=== PATIENT | male | born 1950 | race African-American/Black ===

== ENCOUNTER 2017-05-25 08:52 | Inpatient (IN) ==
[2017-05-25 12:16] LABS: Basophils % 0.3 % (0.0-0.8); Eosinophils # 0.1 10*3/uL (0.0-0.87); Eosinophils % 1.8 % (0.00-10.9); Immature Granulocytes Absolute 0.06 #; Lymphocytes # 2.1 10*3/uL (1.4-4.0); Lymphocytes % 33.9 % (21.2-54.2); Mean Corpuscular HGB Conc 25.5 GM/DL (32-36); Mean Corpuscular Hemoglobin 15 PG (27-34); Mean Corpuscular Volume 60.4 FL (87-102); Monocytes # 0.9 10*3/uL (0.11-0.8); Monocytes % 13.8 % (1.7-12.7); Neutrophils % 49.2 % (38.7-73.9); Red Blood Count 2.73 MC/CUMM (3.8-5.5); Red Cell Distribution Width 23.3 % (9.3-17.3); White Blood Count 6.2 T/CUMM (4-12)
[2017-05-25 12:20] LABS: PT Patient Result 10.8 SECS; Partial Thromboplastin Time 26.9 SECS (0-40)
[2017-05-25 12:27] LABS: Hematocrit 16.5 VOL% (42.0-52.0); Hemoglobin 4.2 GM/DL (14.0-18.0)
[2017-05-25 12:28] LABS: Platelet Count 81 T/CUMM (130-400)
[2017-05-25 12:42] LABS: Microcytosis 2+
[2017-05-25 12:43] LABS: Hypochromasia 3+; Target Cells Slight
[2017-05-25 12:44] LABS: Platelet Estimate Decreased; Schistocytes Slight
[2017-05-25 12:45] LABS: Acanthocytes Few
[2017-05-25 12:52] LABS: Alanine Aminotransferase 14 U/L (16-61); Albumin 3.8 G/DL (3.4-5.0); Alkaline Phosphatase 65 U/L (45-117); Aspartate Amino Transferase 24 U/L (0-37); Bilirubin,Total < 0.39 MG/DL (0.2-1.0); Blood Urea Nitrogen 9 MG/DL (7-18); Calcium 8.4 MG/DL (8.5-10.1); Glucose 83 MG/DL (74-106); Osmolality,Calculated 274.5 MOS/KG (273-304); Potassium 3.9 MMOL/L (3.5-5.1); Sodium 139 MMOL/L (136-145); Total Protein 7.6 G/DL (6.4-8.3)
[2017-05-25 13:06] LABS: Apearance,Urine CLEAR (Clear); Bilirubin,Urine Negative (Negative); Blood, Urine Negative (Negative); Glucose,Urine (UA) Negative (Negative); Ketones,Urine Negative (Negative); Mucus,Urine Occasional /LPF (Occasional); Nitrite,Urine Negative (Negative); Protein,Urine Negative; Squamous Epithelial Cell,Urine Occasional /HPF (0-10); Urine Color Yellow (Yellow); Urine Specific Gravity 1.016 (1.001-1.035); Urine Urobilinogen < 2.0 EU/DL (0.2-1.0); WBC,Urine <1 /HPF (0-6)
[2017-05-25] MEDS ORDERED: SODIUM CHLORIDE 0.9% 1,000 ML IV PRN ×3 (13:25→20:55)
[2017-05-25] MEDS ORDERED: ONDANSETRON 4 MG/2 ML VIAL IV PRN (16:52)
[2017-05-25] MEDS ORDERED: ACETAMINOPHEN 325 MG TABLET PO PRN (16:52)
[2017-05-25 19:06] LABS: % Iron Saturation 3.8 % (18-50); Ferritin 6.2 ng/ml (26-388)
[2017-05-25 19:13] LABS: Folate 14.7 NG/ML (5.4-24.0)
[2017-05-25] MEDS: SODIUM CHLORIDE 0.9% 1,000 ML IV SCH (23:26)
[2017-05-26] MEDS: SODIUM CHLORIDE 0.9% 1,000 ML IV SCH ×2 (04:16→14:43)
[2017-05-26 06:16] LABS: Basophils % 0.5 % (0.0-0.8); Eosinophils # 0.2 10*3/uL (0.0-0.87); Eosinophils % 3.8 % (0.00-10.9); Hematocrit 18.6 VOL% (42.0-52.0); Immature Granulocytes % 0.3 %; Immature Granulocytes Absolute 0.02 #; Lymphocytes # 2.2 10*3/uL (1.4-4.0); Lymphocytes % 35.1 % (21.2-54.2); Mean Corpuscular Hemoglobin 19 PG (27-34); Mean Corpuscular Volume 63.9 FL (87-102); Monocytes % 15.5 % (1.7-12.7); Neutrophils # 2.8 10*3/uL (1.4-7.4); Neutrophils % 44.8 % (38.7-73.9); Platelet Count 40 T/CUMM (130-400); Red Blood Count 2.91 MC/CUMM (3.8-5.5); Red Cell Distribution Width 28.1 % (9.3-17.3); White Blood Count 6.3 T/CUMM (4-12)
[2017-05-26 06:27] LABS: Hemoglobin 5.4 GM/DL (14.0-18.0)
[2017-05-26 06:40] LABS: Eosinophils 6 % (0-10); Hypochromasia 2+; Lymphocytes 34 % (20-55); Platelet Estimate Decreased; Segmented Neutrophils 44 % (50-85); Total Cells Counted 100
[2017-05-26 06:41] LABS: Microcytosis Slight; Ovalocytes Slight; Schistocytes Slight
[2017-05-26] MEDS ORDERED: SODIUM CHLORIDE 0.9% 1,000 ML IV PRN (06:43)
[2017-05-26 06:46] LABS: Calcium 8.3 MG/DL (8.5-10.1); Osmolality,Calculated 275.4 MOS/KG (273-304); Potassium 3.6 MMOL/L (3.5-5.1)
[2017-05-26] MEDS ORDERED: ONDANSETRON 4 MG/2 ML VIAL ONE (12:18)
[2017-05-26] MEDS ORDERED: METOCLOPRAMIDE 10 MG/2 ML VIAL IV ONE (12:46)
[2017-05-26 13:25] LABS: HIV Antigen/Antibody Result Nonreactive (Nonreactive)
[2017-05-26] MEDS: PANTOPRAZOLE 40 MG TABLET PO SCH (14:50)
[2017-05-27 01:20] LABS: Basophils # 0.1 10*3/uL (0.0-0.2); Basophils % 1.3 % (0.0-0.8); Eosinophils # 0.2 10*3/uL (0.0-0.87); Hematocrit 23.5 VOL% (42.0-52.0); Hemoglobin 6.9 GM/DL (14.0-18.0); Immature Granulocytes % 0.5 %; Immature Granulocytes Absolute 0.04 #; Lymphocytes # 2.3 10*3/uL (1.4-4.0); Lymphocytes % 27.5 % (21.2-54.2); Mean Corpuscular HGB Conc 29.4 GM/DL (32-36); Mean Corpuscular Hemoglobin 20 PG (27-34); Mean Corpuscular Volume 69.3 FL (87-102); Monocytes # 1.3 10*3/uL (0.11-0.8); Monocytes % 15.2 % (1.7-12.7); NRBC # 0.03 10*3/uL; Neutrophils # 4.5 10*3/uL (1.4-7.4); Neutrophils % 53.5 % (38.7-73.9); Red Blood Count 3.39 MC/CUMM (3.8-5.5); Red Cell Distribution Width 28.9 % (9.3-17.3); White Blood Count 8.3 T/CUMM (4-12)
[2017-05-27 01:26] LABS: Platelet Count 38 T/CUMM (130-400)
[2017-05-27] MEDS ORDERED: SODIUM CHLORIDE 0.9% 1,000 ML IV PRN ×2 (01:44→16:13)
[2017-05-27 01:55] LABS: Albumin 3.1 G/DL (3.4-5.0); Bilirubin,Total 0.9 MG/DL (0.2-1.0); Calcium 7.7 MG/DL (8.5-10.1); Magnesium 1.9 MG/DL (1.8-2.4); Osmolality,Calculated 277.4 MOS/KG (273-304); Potassium 3.4 MMOL/L (3.5-5.1); Total Protein 6.3 G/DL (6.4-8.3)
[2017-05-27 03:50] LABS: Hypochromasia 2+; Schistocytes 1+; Target Cells Few
[2017-05-27 03:51] LABS: Acanthocytes Few; Microcytosis 1+; Platelet Estimate Decreased; Poikilocytosis 1+
[2017-05-27 03:52] LABS: Anisocytosis 1+
[2017-05-27 03:55] LABS: Ovalocytes Few
[2017-05-27] MEDS: ATORVASTATIN 40 MG TABLET PO SCH (08:49)
[2017-05-27] MEDS: ISOSORBIDE MONONITRATE 30 MG TABLET PO SCH (08:50)
[2017-05-27] MEDS: BISACODYL 5 MG TABLET PO SCH ×2 (08:50→16:56)
[2017-05-27] MEDS: PANTOPRAZOLE 40 MG TABLET PO SCH (08:50)
[2017-05-27] MEDS ORDERED: POLYETHYLENE GLYCOL POWDER 255 GM BOTTLE PO ONE (18:00)
[2017-05-27] MEDS: SODIUM CHLORIDE 0.9% 1,000 ML IV SCH (18:40)
[2017-05-27] MEDS ORDERED: MAGNESIUM CITRATE 300 ML BOTTLE PO ONE (21:00)
[2017-05-28] MEDS: BISACODYL 5 MG TABLET PO SCH (01:42)
[2017-05-28 07:01] LABS: Basophils # 0.2 10*3/uL (0.0-0.2); Eosinophils # 0.4 10*3/uL (0.0-0.87); Eosinophils % 3.6 % (0.00-10.9); Hematocrit 28.3 VOL% (42.0-52.0); Immature Granulocytes % 0.3 %; Immature Granulocytes Absolute 0.03 #; Lymphocytes # 2.4 10*3/uL (1.4-4.0); Lymphocytes % 24.1 % (21.2-54.2); Mean Corpuscular HGB Conc 29.7 GM/DL (32-36); Mean Corpuscular Hemoglobin 21 PG (27-34); Mean Corpuscular Volume 70.9 FL (87-102); Monocytes # 1.4 10*3/uL (0.11-0.8); Monocytes % 13.6 % (1.7-12.7); NRBC # 0.02 10*3/uL; Neutrophils # 5.6 10*3/uL (1.4-7.4); Neutrophils % 56.4 % (38.7-73.9); Red Blood Count 3.99 MC/CUMM (3.8-5.5); Red Cell Distribution Width 29.5 % (9.3-17.3)
[2017-05-28 07:03] LABS: Hemoglobin 8.4 GM/DL (14.0-18.0); Platelet Count 117 T/CUMM (130-400)
[2017-05-28] MEDS ORDERED: ONDANSETRON 4 MG/2 ML VIAL ONE (10:57)
[2017-05-28] MEDS ORDERED: PROPOFOL 200 MG/20 ML VIAL IV ONE (10:57)
[2017-05-28] MEDS ORDERED: IRON DEXTRAN 25 MG in SYRINGE 1 EACH IV ONE (11:00)
[2017-05-28] MEDS: ISOSORBIDE MONONITRATE 30 MG TABLET PO SCH (12:02)
[2017-05-28] MEDS: ATORVASTATIN 40 MG TABLET PO SCH (12:02)
[2017-05-28] MEDS: PANTOPRAZOLE 40 MG TABLET PO SCH (12:03)
[2017-05-28] MEDS ORDERED: SODIUM CHLORIDE 0.9% IV ONE (16:00)
[2017-05-28] MEDS ORDERED: IRON DEXTRAN IV ONE (16:00)
[2017-05-29 08:07] LABS: Basophils # 0.2 10*3/uL (0.0-0.2); Basophils % 1.4 % (0.0-0.8); Eosinophils # 0.3 10*3/uL (0.0-0.87); Hematocrit 27.4 VOL% (42.0-52.0); Immature Granulocytes % 0.8 %; Lymphocytes # 2.4 10*3/uL (1.4-4.0); Lymphocytes % 18.8 % (21.2-54.2); Mean Corpuscular HGB Conc 29.2 GM/DL (32-36); Mean Corpuscular Hemoglobin 21 PG (27-34); Mean Corpuscular Volume 72.7 FL (87-102); Monocytes # 1.5 10*3/uL (0.11-0.8); NRBC # 0.03 10*3/uL; Neutrophils # 8.3 10*3/uL (1.4-7.4); Platelet Count 123 T/CUMM (130-400); Red Blood Count 3.77 MC/CUMM (3.8-5.5); Red Cell Distribution Width 30.8 % (9.3-17.3); White Blood Count 12.7 T/CUMM (4-12)
[2017-05-29 08:35] LABS: Hypochromasia 2+
[2017-05-29 08:36] LABS: Acanthocytes Few; Platelet Estimate Adequate; Spherocytes Few; Target Cells Few
[2017-05-29 08:38] LABS: Anisocytosis 1+; Microcytosis 1+
[2017-05-29] MEDS ORDERED: LISINOPRIL/HCTZ 10-12.5 MG TABLET PO SCH (09:00)
[2017-05-29] MEDS: ATORVASTATIN 40 MG TABLET PO SCH (09:22)
[2017-05-29] MEDS: ISOSORBIDE MONONITRATE 30 MG TABLET PO SCH (09:22)
[2017-05-29] MEDS: PANTOPRAZOLE 40 MG TABLET PO SCH (09:22)
[2017-05-29] MEDS: SODIUM CHLORIDE 0.9% 1,000 ML IV SCH (10:45)
[2017-05-29 11:20] VITALS: BP 140/84
[2017-05-29 11:36] LABS: Apearance,Urine CLEAR (Clear); Bilirubin,Urine Negative (Negative); Blood, Urine Negative (Negative); Glucose,Urine (UA) Negative (Negative); Ketones,Urine Negative (Negative); Mucus,Urine Occasional /LPF (Occasional); Nitrite,Urine Negative (Negative); Protein,Urine Negative; RBC,Urine <1 /HPF (0-4); Squamous Epithelial Cell,Urine Occasional /HPF (0-10); Urine Color Yellow (Yellow); Urine Specific Gravity 1.008 (1.001-1.035); Urine Urobilinogen < 2.0 EU/DL (0.2-1.0); WBC,Urine 1 /HPF (0-6)
== END 2017-05-29 15:45 | disposition home or self-care (01) | DRG 379 ==
LOC: N.ED 08:52 → N.EDINP 14:08 → N.3E 17:38
PROVIDERS: ADMIT Internal Medicine; ATTEND Internal Medicine

== ENCOUNTER 2017-06-18 06:09 | Inpatient (IN) ==
[2017-06-18] MEDS ORDERED: NITROGLYCERIN 2% OINT 1 INCH/GM PACK TOP STA (07:02)
[2017-06-18] MEDS ORDERED: ASPIRIN 325 MG TABLET PO STA (07:02)
[2017-06-18] MEDS ORDERED: NITROGLYCERIN 2% OINT 1 INCH/GM PACK TOP ONE (07:08)
[2017-06-18] MEDS ORDERED: ASPIRIN 325 MG TABLET ONE (07:08)
[2017-06-18 07:23] LABS: Basophils # 0.2 10*3/uL (0.0-0.2); Basophils % 0.9 % (0.0-0.8); Eosinophils # 0.2 10*3/uL (0.0-0.87); Eosinophils % 0.9 % (0.00-10.9); Hematocrit 39.4 VOL% (42.0-52.0); Hemoglobin 12.3 GM/DL (14.0-18.0); Immature Granulocytes % 0.5 %; Immature Granulocytes Absolute 0.09 #; Lymphocytes # 1.6 10*3/uL (1.4-4.0); Lymphocytes % 9.5 % (21.2-54.2); Mean Corpuscular HGB Conc 31.2 GM/DL (32-36); Mean Corpuscular Hemoglobin 26 PG (27-34); Mean Corpuscular Volume 81.9 FL (87-102); Mean Platelet Volume 8.8 FL (9.6-12.0); Monocytes # 1.8 10*3/uL (0.11-0.8); Monocytes % 10.3 % (1.7-12.7); Neutrophils # 13.3 10*3/uL (1.4-7.4); Neutrophils % 77.9 % (38.7-73.9); Platelet Count 783 T/CUMM (130-400); Red Blood Count 4.81 MC/CUMM (3.8-5.5)
[2017-06-18 07:48] LABS: PT Patient Result 10.5 SECS
[2017-06-18 07:57] LABS: Albumin 3.7 G/DL (3.4-5.0); Bilirubin,Total 0.9 MG/DL (0.2-1.0); Calcium 9.7 MG/DL (8.5-10.1); Potassium 3.5 MMOL/L (3.5-5.1); Total Protein 7.3 G/DL (6.4-8.3)
[2017-06-18] MEDS ORDERED: ONDANSETRON 4 MG/2 ML VIAL IV PRN (09:50)
[2017-06-18] MEDS ORDERED: MORPHINE 2 MG/1 ML SYRINGE IV PRN (09:50)
[2017-06-18] MEDS ORDERED: MAGNESIUM SULF RIDER 2 GM in PREMIX 1 EACH IV PRN (09:50)
[2017-06-18] MEDS ORDERED: MAGNESIUM SULF RIDER 4 GM in PREMIX 1 EACH IV PRN (09:50)
[2017-06-18] MEDS: NITROGLYCERIN DRIP 50 MG/250 ML BOTTLE IV SCH (10:06)
[2017-06-18] MEDS: DEXTROSE 5% NACL 0.45% 1,000 ML IV SCH ×2 (10:06→18:06)
[2017-06-18] MEDS: ENOXAPARIN 80 MG/0.8 ML SYRINGE SUBCUT SCH ×2 (10:16→22:57)
[2017-06-18 10:48] LABS: Hypochromasia Slight; Polychromasia Slight; Target Cells Slight
[2017-06-18] MEDS ORDERED: TIROFIBAN IV ONE ×2 (10:53→11:30)
[2017-06-18] MEDS: TIROFIBAN 5,000 MCG/100 ML PREMIX IV SCH ×2 (11:41→18:03)
[2017-06-18 18:13] LABS: Basophils # 0.1 10*3/uL (0.0-0.2); Basophils % 0.8 % (0.0-0.8); Eosinophils # 0.1 10*3/uL (0.0-0.87); Eosinophils % 0.6 % (0.00-10.9); Hematocrit 39.8 VOL% (42.0-52.0); Hemoglobin 12.2 GM/DL (14.0-18.0); Immature Granulocytes % 0.5 %; Immature Granulocytes Absolute 0.07 #; Lymphocytes # 1.7 10*3/uL (1.4-4.0); Lymphocytes % 13.1 % (21.2-54.2); Mean Corpuscular HGB Conc 30.7 GM/DL (32-36); Mean Corpuscular Hemoglobin 25 PG (27-34); Mean Corpuscular Volume 81.4 FL (87-102); Mean Platelet Volume 8.9 FL (9.6-12.0); Monocytes # 1.8 10*3/uL (0.11-0.8); Monocytes % 13.6 % (1.7-12.7); Neutrophils # 9.4 10*3/uL (1.4-7.4); Neutrophils % 71.4 % (38.7-73.9); Platelet Count 640 T/CUMM (130-400); Red Blood Count 4.89 MC/CUMM (3.8-5.5); White Blood Count 13.2 T/CUMM (4-12)
[2017-06-18 20:07] LABS: Anisocytosis 3+; Burr Cells Few; Hypochromasia Slight; Ovalocytes Few; Platelet Estimate Increased; Poikilocytosis 2+; Spherocytes Few; Target Cells Few
[2017-06-19] MEDS: TIROFIBAN 5,000 MCG/100 ML PREMIX IV SCH ×4 (01:07→19:47)
[2017-06-19] MEDS: DEXTROSE 5% NACL 0.45% 1,000 ML IV SCH ×4 (02:32→22:31)
[2017-06-19 05:16] LABS: Basophils # 0.1 10*3/uL (0.0-0.2); Basophils % 0.9 % (0.0-0.8); Eosinophils # 0.1 10*3/uL (0.0-0.87); Eosinophils % 0.6 % (0.00-10.9); Hematocrit 37.7 VOL% (42.0-52.0); Hemoglobin 11.7 GM/DL (14.0-18.0); Immature Granulocytes % 0.2 %; Immature Granulocytes Absolute 0.03 #; Lymphocytes # 1.8 10*3/uL (1.4-4.0); Lymphocytes % 13.9 % (21.2-54.2); Mean Corpuscular Hemoglobin 25 PG (27-34); Mean Corpuscular Volume 81.3 FL (87-102); Mean Platelet Volume 8.6 FL (9.6-12.0); Monocytes # 2.1 10*3/uL (0.11-0.8); Monocytes % 15.8 % (1.7-12.7); Neutrophils % 68.6 % (38.7-73.9); Platelet Count 734 T/CUMM (130-400); Red Blood Count 4.64 MC/CUMM (3.8-5.5); White Blood Count 13.1 T/CUMM (4-12)
[2017-06-19 05:24] LABS: PT Patient Result 10.6 SECS
[2017-06-19 05:49] LABS: Calcium 9.3 MG/DL (8.5-10.1); Osmolality,Calculated 273.7 MOS/KG (273-304); Potassium 3.5 MMOL/L (3.5-5.1)
[2017-06-19] MEDS ORDERED: DIAZEPAM 5 MG TABLET PO ONE (06:00)
[2017-06-19] MEDS ORDERED: diphenhydrAMINE CAP 25 MG CAPSULE PO ONE (06:00)
[2017-06-19] MEDS ORDERED: POTASSIUM CHLORIDE RIDER 10 MEQ in PREMIX 1 EACH IV PRN (06:00)
[2017-06-19] MEDS ORDERED: MAGNESIUM SULF RIDER 2 GM in PREMIX 1 EACH IV PRN (06:00)
[2017-06-19 06:04] LABS: Eosinophils 1 % (0-10); Lymphocytes 9 % (20-55); Platelet Estimate Normal; Segmented Neutrophils 79 % (50-85); Total Cells Counted 100
[2017-06-19] MEDS ORDERED: LIDOCAINE 1% 20 ML VIAL ONE (06:50)
[2017-06-19] MEDS ORDERED: HYDROmorphone 2 MG/1 ML VIAL ONE (07:21)
[2017-06-19] MEDS ORDERED: MIDAZOLAM 2 MG/2 ML VIAL ONE (07:21)
[2017-06-19] MEDS ORDERED: ENOXAPARIN 30 MG/0.3 ML SYRINGE ONE (07:53)
[2017-06-19] MEDS ORDERED: ASPIRIN 325 MG TABLET ONE (07:59)
[2017-06-19] MEDS ORDERED: NITROGLYCERIN DRIP 50 MG/250 ML BOTTLE IV ONE (08:24)
[2017-06-19] MEDS ORDERED: TICAGRELOR 90 MG TABLET ONE (08:43)
[2017-06-19] MEDS ORDERED: ASPIRIN EC 81 MG TABLET PO SCH (09:00)
[2017-06-19] MEDS ORDERED: SODIUM CHLORIDE 0.45% 1,000 ML IV SCH (09:00)
[2017-06-19] MEDS ORDERED: TICAGRELOR 90 MG TABLET PO SCH (09:00)
[2017-06-19] MEDS ORDERED: ROSUVASTATIN 20 MG TABLET PO SCH (09:30)
[2017-06-19] MEDS: CARVEDILOL 3.125 MG TABLET PO SCH ×2 (09:58→20:41)
[2017-06-19] MEDS: NITROGLYCERIN DRIP 50 MG/250 ML BOTTLE IV SCH ×2 (10:14→10:57)
[2017-06-19 10:17] LABS: CKMB % 7.7 %
[2017-06-19 10:18] LABS: Troponin I Only 21.3 NG/ML (0.00-0.045)
[2017-06-19] MEDS: LISINOPRIL 5 MG TABLET PO SCH (12:05)
[2017-06-19] MEDS: ROSUVASTATIN 20 MG TABLET PO SCH (20:41)
[2017-06-19] MEDS: TICAGRELOR 90 MG TABLET PO SCH (20:42)
[2017-06-20] MEDS: TIROFIBAN 5,000 MCG/100 ML PREMIX IV SCH (01:29)
[2017-06-20 05:14] LABS: Calcium 8.8 MG/DL (8.5-10.1); Osmolality,Calculated 275.4 MOS/KG (273-304); Potassium 3.3 MMOL/L (3.5-5.1)
[2017-06-20 05:20] LABS: CKMB % 3.7 %; Calcium 9.2 MG/DL (8.5-10.1); Osmolality,Calculated 274.5 MOS/KG (273-304); Potassium 3.4 MMOL/L (3.5-5.1)
[2017-06-20 05:21] LABS: Troponin I Only 10.4 NG/ML (0.00-0.045)
[2017-06-20 05:34] LABS: Basophils # 0.2 10*3/uL (0.0-0.2); Basophils % 1.3 % (0.0-0.8); Eosinophils # 0.2 10*3/uL (0.0-0.87); Eosinophils % 1.7 % (0.00-10.9); Hemoglobin 11.7 GM/DL (14.0-18.0); Immature Granulocytes % 0.5 %; Immature Granulocytes Absolute 0.06 #; Lymphocytes # 1.7 10*3/uL (1.4-4.0); Lymphocytes % 13.4 % (21.2-54.2); Mean Corpuscular HGB Conc 31.6 GM/DL (32-36); Mean Corpuscular Hemoglobin 26 PG (27-34); Mean Platelet Volume 9.1 FL (9.6-12.0); Monocytes # 1.8 10*3/uL (0.11-0.8); Monocytes % 14.1 % (1.7-12.7); Neutrophils # 8.7 10*3/uL (1.4-7.4); Platelet Count 669 T/CUMM (130-400); Red Blood Count 4.51 MC/CUMM (3.8-5.5); White Blood Count 12.6 T/CUMM (4-12)
[2017-06-20] MEDS: DEXTROSE 5% NACL 0.45% 1,000 ML IV SCH ×3 (05:35→21:23)
[2017-06-20 05:43] LABS: Giant Platelets Few; Hypochromasia 1+; Microcytosis Slight; Platelet Estimate Increased
[2017-06-20] MEDS: POTASSIUM CHLORIDE RIDER 10 MEQ in PREMIX 1 EACH IV PRN ×2 (06:15→07:56)
[2017-06-20] MEDS: ASPIRIN EC 81 MG TABLET PO SCH (08:26)
[2017-06-20] MEDS: CARVEDILOL 3.125 MG TABLET PO SCH (08:26)
[2017-06-20] MEDS: LISINOPRIL 5 MG TABLET PO SCH (08:26)
[2017-06-20] MEDS: TICAGRELOR 90 MG TABLET PO SCH ×2 (08:26→21:21)
[2017-06-20] MEDS: LISINOPRIL 20 MG TABLET PO SCH (16:57)
[2017-06-20] MEDS: CARVEDILOL 6.25 MG TABLET PO SCH (21:21)
[2017-06-20] MEDS: ROSUVASTATIN 20 MG TABLET PO SCH (21:21)
[2017-06-20] MEDS: NITROGLYCERIN DRIP 50 MG/250 ML BOTTLE IV SCH (21:22)
[2017-06-21] MEDS: cloNIDine 0.1 MG TABLET PO PRN ×4 (02:05→08:24)
[2017-06-21] MEDS: DEXTROSE 5% NACL 0.45% 1,000 ML IV SCH ×2 (04:00→10:46)
[2017-06-21 05:57] LABS: Risk Ratio 2.38
[2017-06-21 07:30] LABS: Basophils # 0.1 10*3/uL (0.0-0.2); Basophils % 1.3 % (0.0-0.8); Eosinophils # 0.4 10*3/uL (0.0-0.87); Eosinophils % 3.8 % (0.00-10.9); Hematocrit 35.9 VOL% (42.0-52.0); Hemoglobin 11.5 GM/DL (14.0-18.0); Immature Granulocytes % 0.5 %; Immature Granulocytes Absolute 0.05 #; Lymphocytes # 1.8 10*3/uL (1.4-4.0); Lymphocytes % 17.1 % (21.2-54.2); Mean Corpuscular Hemoglobin 26 PG (27-34); Mean Corpuscular Volume 81.6 FL (87-102); Mean Platelet Volume 8.5 FL (9.6-12.0); Monocytes # 1.4 10*3/uL (0.11-0.8); Monocytes % 13.3 % (1.7-12.7); Neutrophils # 6.9 10*3/uL (1.4-7.4); Platelet Count 618 T/CUMM (130-400); White Blood Count 10.8 T/CUMM (4-12)
[2017-06-21 07:44] LABS: Osmolality,Calculated 278.3 MOS/KG (273-304); Potassium 3.9 MMOL/L (3.5-5.1)
[2017-06-21 07:59] LABS: Hypochromasia 1+; Microcytosis 1+; Spherocytes Few; Target Cells Slight
[2017-06-21] MEDS: CARVEDILOL 6.25 MG TABLET PO SCH (08:24)
[2017-06-21] MEDS: LISINOPRIL 20 MG TABLET PO SCH (08:24)
[2017-06-21] MEDS: ASPIRIN EC 81 MG TABLET PO SCH (08:25)
[2017-06-21] MEDS: TICAGRELOR 90 MG TABLET PO SCH (08:25)
[2017-06-21] MEDS: NITROGLYCERIN DRIP 50 MG/250 ML BOTTLE IV SCH (10:46)
[2017-06-21 15:28] VITALS: BP 158/91
== END 2017-06-21 15:32 | disposition home or self-care (01) | DRG 247 ==
LOC: N.ED 06:09 → N.EDINP 08:12 → N.CC 08:53
PROVIDERS: ADMIT Internal Medicine Cardiovascular Disease; ATTEND Internal Medicine Cardiovascular Disease
PROC: CLCCHCL (ICD-10-PCS; 2017-06-19 07:45)

== ENCOUNTER 2018-11-21 17:52 | Observation (INO) ==
[2018-11-21] MEDS ORDERED: HYDROmorphone 2 MG/1 ML VIAL IV STA (19:25)
[2018-11-21] MEDS ORDERED: ORPHENADRINE 60 MG/2 ML VIAL IM STA (20:19)
[2018-11-21] MEDS ORDERED: KETOROLAC 30 MG/1 ML VIAL IM STA (20:20)
[2018-11-21] MEDS ORDERED: PROMETHAZINE 25 MG/1 ML VIAL IM PRN (22:03)
[2018-11-21] MEDS ORDERED: diphenhydrAMINE CAP 25 MG CAPSULE PO PRN (22:03)
[2018-11-21] MEDS ORDERED: ACETAMINOPHEN 325 MG TABLET PO PRN (22:03)
[2018-11-21] MEDS ORDERED: ONDANSETRON 4 MG/2 ML VIAL IV PRN (22:03)
[2018-11-21] MEDS ORDERED: NICOTINE 21 MG/24 HR PATCH TRANSDERM PRN (22:03)
[2018-11-21] MEDS ORDERED: MORPHINE 4 MG/1 ML VIAL IV PRN (22:03)
[2018-11-21 22:18] LABS: Basophils # 0.1 10*3/uL (0.0-0.2); Basophils % 0.8 % (0.0-0.8); Eosinophils # 0.1 10*3/uL (0.0-0.87); Eosinophils % 1.5 % (0.00-10.9); Hemoglobin 8.7 GM/DL (14.0-18.0); Immature Granulocytes % 0.4 %; Immature Granulocytes Absolute 0.03 #; Lymphocytes # 1.8 10*3/uL (1.4-4.0); Mean Corpuscular Volume 74.4 FL (87-102); Mean Platelet Volume 8.5 FL (9.6-12.0); Monocytes % 13.7 % (1.7-12.7); Neutrophils % 61.6 % (38.7-73.9); Platelet Count 359 T/CUMM (130-400); Red Blood Count 4.03 MC/CUMM (3.8-5.5); Red Cell Distribution Width 23.1 % (9.3-17.3); White Blood Count 8.2 T/CUMM (4-12)
[2018-11-21 22:25] LABS: Apearance,Urine CLEAR (Clear); Bilirubin,Urine Negative (Negative); Blood, Urine Negative (Negative); Glucose,Urine (UA) Negative (Negative); Ketones,Urine 5 mg/dL (Negative); Mucus,Urine Occasional /LPF (Occasional); Nitrite,Urine Negative (Negative); Protein,Urine 30 MG/DL; RBC,Urine 2 /HPF (0-4); Squamous Epithelial Cell,Urine Occasional /HPF (0-10); Urine Color Yellow (Yellow); Urine Specific Gravity 1.023 (1.001-1.035); Urine Urobilinogen < 2.0 EU/DL (0.2-1.0); WBC,Urine 5 /HPF (0-6)
[2018-11-21 22:42] LABS: Albumin 3.9 G/DL (3.4-5.0); Bilirubin,Total 0.5 MG/DL (0.2-1.0); Calcium 9.2 MG/DL (8.5-10.1); Osmolality,Calculated 279.3 MOS/KG (273-304); Total Protein 7.5 G/DL (6.4-8.3)
[2018-11-22] MEDS ORDERED: hydrALAZINE 20 MG/1 ML VIAL IV PRN (05:26)
[2018-11-22] MEDS ORDERED: KETOROLAC 30 MG/1 ML VIAL IV SCH (07:30)
[2018-11-22] MEDS: METAXALONE 800 MG TABLET PO SCH ×2 (08:15→10:01)
[2018-11-22] MEDS ORDERED: BICALUTAMIDE 50 MG TABLET PO SCH (09:00)
[2018-11-22] MEDS ORDERED: ISOSORBIDE MONONITRATE 30 MG TABLET PO SCH (09:00)
[2018-11-22] MEDS ORDERED: TICAGRELOR 90 MG TABLET PO SCH (09:00)
[2018-11-22] MEDS ORDERED: CARVEDILOL 6.25 MG TABLET PO SCH (09:00)
[2018-11-22] MEDS ORDERED: GABAPENTIN 100 MG CAPSULE PO SCH (09:20)
[2018-11-22] MEDS ORDERED: DICLOFENAC 1% GEL 100 GM TUBE TOP SCH (09:21)
[2018-11-22] MEDS ORDERED: DEXAMETHASONE 4 MG/1 ML VIAL IM ONE (09:45)
[2018-11-22] MEDS ORDERED: methylPREDNISolone ACETATE 80 MG/1 ML VIAL IM ONE (09:45)
[2018-11-22 11:40] VITALS: BP 141/100
[2018-11-22] MEDS ORDERED: ROSUVASTATIN 20 MG TABLET PO SCH (21:00)
== END 2018-11-22 13:40 | disposition home or self-care (01) ==
LOC: EDUNIT# → N.ED 17:52 → N.3E 19:45 → INTOOBSV 22:02 → N.3E 22:02
PROVIDERS: ADMIT Internal Medicine; ATTEND Internal Medicine

== ENCOUNTER 2018-12-14 18:22 | Inpatient (IN) ==
[2018-12-14 19:20] LABS: Basophils # 0.1 10*3/uL (0.0-0.2); Basophils % 0.9 % (0.0-0.8); Eosinophils # 0.3 10*3/uL (0.0-0.87); Hematocrit 30.1 VOL% (42.0-52.0); Hemoglobin 9.1 GM/DL (14.0-18.0); Immature Granulocytes % 0.4 %; Immature Granulocytes Absolute 0.04 #; Lymphocytes # 2.1 10*3/uL (1.4-4.0); Lymphocytes % 22.1 % (21.2-54.2); Mean Corpuscular HGB Conc 30.2 GM/DL (32-36); Mean Platelet Volume 8.6 FL (9.6-12.0); Monocytes % 11.9 % (1.7-12.7); Neutrophils % 61.7 % (38.7-73.9); Platelet Count 403 T/CUMM (130-400); Red Blood Count 3.96 MC/CUMM (3.8-5.5); Red Cell Distribution Width 23.4 % (9.3-17.3); White Blood Count 9.7 T/CUMM (4-12)
[2018-12-14 19:38] LABS: Albumin 3.6 G/DL (3.4-5.0); Bilirubin,Total 0.4 MG/DL (0.2-1.0); Osmolality,Calculated 287.8 MOS/KG (273-304); Total Protein 7.2 G/DL (6.4-8.3)
[2018-12-14 19:45] LABS: PT Patient Result 10.7 SECS
[2018-12-14] MEDS ORDERED: ONDANSETRON 4 MG/2 ML VIAL IV PRN (21:45)
[2018-12-14] MEDS ORDERED: ACETAMINOPHEN 325 MG TABLET PO PRN (21:45)
[2018-12-14] MEDS ORDERED: DOCUSATE SODIUM 100 MG CAPSULE PO PRN (21:45)
[2018-12-14] MEDS ORDERED: PROMETHAZINE 25 MG TABLET PO PRN (21:45)
[2018-12-15] MEDS: THIAMINE INJ 100 MG, FOLIC ACID INJ 1 MG, MULTIVITAMIN INJ 10 ML in SODIUM CHLORIDE 0.9... IV SCH ×2 (00:36→21:46)
[2018-12-15 06:19] LABS: Basophils # 0.1 10*3/uL (0.0-0.2); Basophils % 0.8 % (0.0-0.8); Eosinophils # 0.3 10*3/uL (0.0-0.87); Eosinophils % 2.8 % (0.00-10.9); Hematocrit 29.1 VOL% (42.0-52.0); Hemoglobin 8.8 GM/DL (14.0-18.0); Immature Granulocytes % 0.4 %; Immature Granulocytes Absolute 0.04 #; Lymphocytes # 2.2 10*3/uL (1.4-4.0); Lymphocytes % 23.5 % (21.2-54.2); Mean Corpuscular HGB Conc 30.2 GM/DL (32-36); Mean Corpuscular Volume 75.2 FL (87-102); Mean Platelet Volume 8.7 FL (9.6-12.0); Monocytes % 11.5 % (1.7-12.7); Platelet Count 379 T/CUMM (130-400); Red Blood Count 3.87 MC/CUMM (3.8-5.5); Red Cell Distribution Width 23.7 % (9.3-17.3); White Blood Count 9.4 T/CUMM (4-12)
[2018-12-15 06:46] LABS: Acanthocytes 1+; Anisocytosis 1+; Hypochromasia 1+; Ovalocytes 1+; Platelet Estimate Adequate; Target Cells 1+
[2018-12-15 06:49] LABS: Albumin 3.4 G/DL (3.4-5.0); Bilirubin,Total 0.4 MG/DL (0.2-1.0); Calcium 9.3 MG/DL (8.5-10.1); Osmolality,Calculated 279.3 MOS/KG (273-304); Total Protein 6.4 G/DL (6.4-8.3)
[2018-12-15 06:52] LABS: Apearance,Urine CLEAR (Clear); Bilirubin,Urine Negative (Negative); Blood, Urine Negative (Negative); Glucose,Urine (UA) Negative (Negative); Ketones,Urine Negative (Negative); Nitrite,Urine Negative (Negative); Protein,Urine Negative; RBC,Urine 2 /HPF (0-4); Squamous Epithelial Cell,Urine Occasional /HPF (0-10); Urine Color Yellow (Yellow); Urine Specific Gravity 1.056 (1.001-1.035); Urine Urobilinogen < 2.0 EU/DL (0.2-1.0); WBC,Urine 11 /HPF (0-6)
[2018-12-15 07:26] LABS: Barbiturates Screen,Urine Negative (Negative); Benzodiazepines Screen,Urine Negative (Negative); Cannabinoid Screen,Urine Positive (Negative); Opiate Screen,Urine Negative (Negative); Phencyclidine Screen,Urine Negative (Negative)
[2018-12-15] MEDS: DICLOFENAC 1% GEL 100 GM TUBE TOP SCH ×3 (08:32→21:22)
[2018-12-15] MEDS: TICAGRELOR 90 MG TABLET PO SCH ×2 (08:32→21:22)
[2018-12-15] MEDS: PANTOPRAZOLE 40 MG TABLET PO SCH (08:33)
[2018-12-15] MEDS: ISOSORBIDE MONONITRATE 30 MG TABLET PO SCH (08:33)
[2018-12-15] MEDS: GABAPENTIN 100 MG CAPSULE PO SCH ×3 (08:33→21:22)
[2018-12-15] MEDS: MULTIVITAMIN (CENTRUM) TABLET PO SCH (08:33)
[2018-12-15] MEDS: CARVEDILOL 12.5 MG TABLET PO SCH ×2 (08:33→21:22)
[2018-12-15] MEDS: ROSUVASTATIN 20 MG TABLET PO SCH (21:21)
[2018-12-16] MEDS: THIAMINE INJ 100 MG, FOLIC ACID INJ 1 MG, MULTIVITAMIN INJ 10 ML in SODIUM CHLORIDE 0.9... IV SCH (00:42)
[2018-12-16] MEDS: PANTOPRAZOLE 40 MG TABLET PO SCH (08:55)
[2018-12-16] MEDS: TICAGRELOR 90 MG TABLET PO SCH ×2 (08:55→21:12)
[2018-12-16] MEDS: MULTIVITAMIN (CENTRUM) TABLET PO SCH (08:55)
[2018-12-16] MEDS: GABAPENTIN 100 MG CAPSULE PO SCH ×3 (08:55→21:11)
[2018-12-16] MEDS: CARVEDILOL 12.5 MG TABLET PO SCH ×2 (08:56→21:11)
[2018-12-16] MEDS: ISOSORBIDE MONONITRATE 30 MG TABLET PO SCH (08:56)
[2018-12-16] MEDS: DICLOFENAC 1% GEL 100 GM TUBE TOP SCH ×3 (08:56→21:12)
[2018-12-16] MEDS: ROSUVASTATIN 20 MG TABLET PO SCH (21:11)
[2018-12-16] MEDS: ZALEPLON 5 MG CAPSULE PO PRN (21:12)
[2018-12-17] MEDS: THIAMINE INJ 100 MG, FOLIC ACID INJ 1 MG, MULTIVITAMIN INJ 10 ML in SODIUM CHLORIDE 0.9... IV SCH (00:09)
[2018-12-17] MEDS: TICAGRELOR 90 MG TABLET PO SCH ×2 (11:14→20:36)
[2018-12-17] MEDS: MULTIVITAMIN (CENTRUM) TABLET PO SCH (11:14)
[2018-12-17] MEDS: CARVEDILOL 12.5 MG TABLET PO SCH ×2 (11:14→20:36)
[2018-12-17] MEDS: PANTOPRAZOLE 40 MG TABLET PO SCH (11:14)
[2018-12-17] MEDS: GABAPENTIN 100 MG CAPSULE PO SCH ×3 (11:14→20:36)
[2018-12-17] MEDS: ISOSORBIDE MONONITRATE 30 MG TABLET PO SCH (11:14)
[2018-12-17] MEDS: DICLOFENAC 1% GEL 100 GM TUBE TOP SCH ×3 (11:15→20:44)
[2018-12-17] MEDS ORDERED: LORazepam 2 MG/1 ML VIAL IV PRN (17:10)
[2018-12-17] MEDS: levETIRAcetam 500 MG TABLET PO SCH (20:36)
[2018-12-17] MEDS: ROSUVASTATIN 20 MG TABLET PO SCH (20:36)
[2018-12-17] MEDS: ZALEPLON 5 MG CAPSULE PO PRN (20:40)
[2018-12-18] MEDS: THIAMINE INJ 100 MG, FOLIC ACID INJ 1 MG, MULTIVITAMIN INJ 10 ML in SODIUM CHLORIDE 0.9... IV SCH (00:37)
[2018-12-18] MEDS ORDERED: hydrALAZINE 20 MG/1 ML VIAL IV ONE (04:07)
[2018-12-18 07:53] VITALS: BP 158/104
[2018-12-18] MEDS: CARVEDILOL 12.5 MG TABLET PO SCH (09:13)
[2018-12-18] MEDS: levETIRAcetam 500 MG TABLET PO SCH (09:13)
[2018-12-18] MEDS: TICAGRELOR 90 MG TABLET PO SCH (09:13)
[2018-12-18] MEDS: ISOSORBIDE MONONITRATE 30 MG TABLET PO SCH (09:14)
[2018-12-18] MEDS: GABAPENTIN 100 MG CAPSULE PO SCH (09:14)
[2018-12-18] MEDS: PANTOPRAZOLE 40 MG TABLET PO SCH (09:14)
[2018-12-18] MEDS: MULTIVITAMIN (CENTRUM) TABLET PO SCH (09:14)
[2018-12-18] MEDS: DICLOFENAC 1% GEL 100 GM TUBE TOP SCH (09:15)
== END 2018-12-18 11:06 | disposition home or self-care (01) | DRG 101 ==
LOC: N.EDINP 18:22 → N.ED 18:22 → SUATTDRO 21:45 → N.5E 23:30 → SUATTDRO 12-16 16:00
PROVIDERS: ADMIT Internal Medicine; ATTEND Internal Medicine Geriatric Medicine